=== PATIENT | male | born 1995 | race Caucasian/White ===

== ENCOUNTER 2020-10-15 17:28 | Emergency (ER) | payer OTHER ==
[~2020-10-15] VITALS: Ht 175.3 cm; Wt 81.6 kg
[2020-10-15 17:40] VITALS: BP 125/72
--- NOTE | 2020-10-15 18:19 | NUR ---
SEEN AND EXAMINED BY JARRED GEORGE
--- NOTE | 2020-10-15 18:23 | NUR ---
IT APPLICATION ARCHITECT AT BEDSIDE FOR XRAY.
[2020-10-15] MEDS ORDERED: IBUPROFEN 600 MG TABLET ONE (18:25)
[2020-10-15] MEDS ORDERED: TDAP [DIPH/PERTUSSIS/TET] 0.5 ML VIAL IM ONE ×2 (18:25→18:30)
[2020-10-15] MEDS ORDERED: IBUPROFEN 600 MG TABLET PO ONE (18:30)
--- NOTE | 2020-10-15 19:08 | NUR ---
KENN SEARS AT BEDSIDE FOR WOUND CLEANING.
--- NOTE | 2020-10-15 19:09 | NUR ---
Patient discharged to home in stable condition. Written and verbal after care instructions given. Patient verbalizes understanding of instruction.
== END 2020-10-15 19:10 | disposition home or self-care (01) ==
LOC: ER 17:28
DX: S39.012A Strain of muscle, fascia and tendon of lower back, initial encounter (principal); S80.02XA Contusion of left knee, initial encounter; V49.59XA Passenger injured in collision with other motor vehicles in traffic accident, initial encounter; Y93.89 Activity, other specified; Y92.413 State road as the place of occurrence of the external cause; Y99.8 Other external cause status
CPT/HCPCS: 73564-TC; 90715